=== PATIENT | female | born 1995 | race Caucasian/White ===

== ENCOUNTER 2017-03-27 02:24 | Emergency (ER) | payer SELFPAY ==
[~2017-03-27] VITALS: Ht 177.8 cm; Wt 78.9 kg
--- NOTE | 2017-03-27 03:22 | Diagnostic Imaging Report ---
ADDENDUM #1 HAND 3+ VIEWS LEFT HISTORY: Hand pain COMPARISON: None FINDINGS: Bones: Acute, nondisplaced fracture at the base of the second digit proximal diaphysis without intra-articular involvement Osseous alignment is within normal limits. Joints: The joint spaces are well-maintained. Soft tissues: There is a focal opacity at the palmar aspect of the left hand between the second and third metacarpal diaphysis suspicious for radiopaque foreign body IMPRESSION: 1. Acute, nondisplaced fracture of the base of the second digit without intra-articular involvement. 2. Palmar foreign body is suspected. Correlate for open wound. Signed by: Dr. Isauro Mendoza M.D. on 03/27/2017 3:41 AM ORIGINAL REPORT HAND 3+ VIEWS LEFT HISTORY: Hand pain COMPARISON: None FINDINGS: Bones: No displaced fracture. Osseous alignment is within normal limits. Joints: The joint spaces are well-maintained. Soft tissues: There is a focal opacity at the palmar aspect of the left hand between the second and third metacarpal diaphysis suspicious for radiopaque foreign body IMPRESSION: 1. No acute osseous abnormality. 2. Palmar foreign body is suspected. Correlate for open wound. Signed by: Dr. Isauro Mendoza M.D. on 03/27/2017 3:19 AM
[2017-03-27] MEDS ORDERED: ULTRAM 50MG50 MG PO (03:25)
== END 2017-03-27 05:00 | disposition home or self-care (01) ==
LOC: ER 02:24
DX: S62.611A Displaced fracture of proximal phalanx of left index finger, initial encounter for closed fracture (principal); X58.XXXA Exposure to other specified factors, initial encounter; Y93.9 Activity, unspecified
CPT/HCPCS: 99282

== ENCOUNTER 2018-01-25 04:57 | Emergency (ER) | payer SELFPAY ==
[~2018-01-25] VITALS: Ht 177.8 cm; Wt 78.9 kg
[~2018-01-25 04:57] MED LIST: ULTRAM 50MG50 MG PO
--- OUTSIDE RECORDS SUMMARY | 2018-01-25 04:59 | XMS REPORT ---
Author [facility] Address Unknown Phone Unavailable Care Team Providers Care Compressor Station Chief Engineer Name Role Phone Candice LAIRD Unavailable Unavailable Problems This patient has no known problems. Allergies, Adverse Reactions, Alerts This patient has no known allergies or adverse reactions. Medications This patient has no known medications. Results Test Description Test Time Test Comments Text Results Atomic Results Result Comments HAND 3+ VIEWS LEFT [place] [id number] Patient Name: VIVIAN NAVA MR #: [id number] : 1995 Age/Sex: 21/F Req #: [id number] Adm Physician: Ordered by: ROCCO LAIRD MD Report #: [id number] Location: ER Room/Bed: Procedure: [id number] DX/HAND 3+ VIEWS LEFT Exam Date: Exam Time: REPORT STATUS: Signed ADDENDUM #1 HAND 3+ VIEWS LEFT HISTORY: Hand pain COMPARISON: None FINDINGS: Bones: Acute, nondisplaced fracture at the base of the second digit proximal diaphysis without intra-articular involvement Osseous alignment is within normal limits. Joints: The joint spaces are well-maintained. Soft tissues: There is a focal opacity at the palmar aspect of the left hand between the second and third metacarpal diaphysis suspicious for radiopaque foreign body IMPRESSION: 1. Acute, nondisplaced fracture of the base of the second digit without intra-articular involvement. 2. Palmar foreign body is suspected. Correlate for open wound. Signed by: Dr. Isauro Mendoza M.D. on 03/27/2017 3:41 AM ORIGINAL REPORT HAND 3+ VIEWS LEFT HISTORY: Hand pain COMPARISON: None FINDINGS: Bones: No displaced fracture. Osseous alignment is within normal limits. Joints: The joint spaces are well-maintained. Soft tissues: There is a focal opacity at the palmar aspect of the left hand between the second and third metacarpal diaphysis suspicious for radiopaque foreign body IMPRESSION: 1. No acute osseous abnormality. 2. Palmar foreign body is suspected. Correlate for open wound. Signed by: Dr. Isauro Mendoza M.D. on 03/27/2017 3:19 AM Dictated By: ISAURO AGARWAL MD [id number] Transcribed By: KODY on 03/27/17 0319 COPY TO: ROCCO LAIRD MD
--- OUTSIDE RECORDS SUMMARY | 2018-01-25 05:00 | XMS REPORT ---
Author Author Admin, [place] Organization [facility] Address Unknown Phone Unavailable Allergies, Adverse Reactions, Alerts Allergy Name Reaction Description Start Date Severity Status Provider CATS Critical Active Campos Pantoja MD Conditions or Problems Problem Name Problem Code Onset Date Status Entry Date Provider Comment Standard Description Annotate Sore throat 462 Active Campos Pantoja MD Acute pharyngitis Medication List Medication Instructions Start Date Stop Date Generic Name NDC Status Provider Patient Instruction PENICILLIN V POTASSIUM 250 MG ORAL TABLET 1 by mouth 4 times a day for 10 days PENICILLIN V POTASSIUM 79156757821 Active Campos Pantoja MD Active Vital Signs Date Name Value Unit Range Description blood pressure, diastolic 85 mm[Hg] BP mac blood pressure, systolic 136 mm[Hg] BP sys height E&M 69.50 [in_us] Bdy height pulse rate E&M 99 /min Heart rate respiratory rate E&M 18 /min Resp rate temperature E&M 98.5 [degF] Body temperature weight E&M 199.13 [lb_av] Weight Measured Encounters Date Encounter Provider Code Facility 11:11:18 CDT New Patient Detailed - 40278 Campos Pantoja MD CPT-72874 [facility] Procedures Code Procedure Name Date Entry Date Standard Description CPT-99511 Rapid Strep - In House 10:41:57 CDT
[2018-01-25] MEDS ORDERED: FAMOTIDINE 20 MG/2 ML VIAL IV STA (05:17)
[2018-01-25] MEDS ORDERED: ONDANSETRON HCL INJ 2 MG/ML VIAL IV STA (05:17)
[2018-01-25] MEDS ORDERED: MORPHINE SULFATE 2 MG/ML SYR IV STA (05:17)
[2018-01-25] MEDS ORDERED: SODIUM CHLORIDE 0.9% 1000ML 1,000 ML IV SCH (05:30)
[2018-01-25] MEDS ORDERED: MORPHINE SULFATE INJ 4 MG/ML INJ ONE (05:31)
[2018-01-25 05:33] LABS: BASOPHILS % 0.2 % (0.0-1.0); EOSINOPHILS % 0.3 % (0.0-6.0); HEMATOCRIT 45.3 % (34.2-44.1); HEMOGLOBIN 15.4 g/dL (12.0-16.0); LYMPHOCYTES # (AUTO) 0.3 (1.0-3.2); MEAN CORPUSCULAR HEMOGLOBIN 31.5 pg (28-32); MEAN CORPUSCULAR VOLUME 92.6 fL (81-99); MONOCYTES # (AUTO) 0.5 (0.2-0.8); MONOCYTES % 3.7 % (4.4-11.3); NEUTROPHILS # (AUTO) 13.2 (2.1-6.9); NEUTROPHILS % 93.4 % (38.7-80.0); PLATELET COUNT 348 x10e3/uL (140-360); RED BLOOD COUNT 4.89 x10e6/uL (3.6-5.1); RED CELL DISTRIBUTION WIDTH 12.9 % (11.7-14.4)
[2018-01-25 05:53] LABS: ALANINE AMINOTRANSFERASE 13 IU/L (0-55); ALBUMIN 3.9 g/dL (3.5-5.0); ALBUMIN/GLOBULIN RATIO 1.3 (0.8-2.0); ALKALINE PHOSPHATASE 53 IU/L (40-150); AMYLASE 51 U/L (25-125); ANION GAP 14.8 mmol/L (8-16); BLOOD UREA NITROGEN 16 mg/dL (7-26); BUN/CREATININE RATIO 23 (6-25); CARBON DIOXIDE 23 mmol/L (22-29); CHLORIDE 100 mmol/L (98-107); CREATININE, SERUM 0.69 mg/dL (0.57-1.11); EST GLOMERULAR FILTRATION RATE > 60 ML/MIN (60-); GLUCOSE 113 mg/dL (74-118); LIPASE 45 U/L (8-78); POTASSIUM 3.8 mmol/L (3.5-5.1); SODIUM 134 mmol/L (136-145)
[2018-01-25 06:01] LABS: COLOR,URINE YELLOW (YELLOW)
[2018-01-25 06:02] LABS: CLARITY,URINE HAZY (CLEAR); LEUKOCYTE ESTERASE ,URINE NEGATIVE (NEGATIVE); NITRITE,URINE NEGATIVE (NEGATIVE); PROTEIN,URINE DIPSTICK NEGATIVE (NEGATIVE)
[2018-01-25 06:03] LABS: BACTERIA,URINE MODERATE /HPF; BILIRUBIN,URINE NEGATIVE (NEGATIVE); KETONES,URINE TRACE (NEGATIVE); RBC,URINE 0-5 /HPF (0-5); URINE UROBILINOGEN 0.2 mg/dL (0.2 - 1); WBC,URINE (MAN) 0-5 /HPF (0-5)
[2018-01-25 06:04] LABS: AMORPHOUS SEDIMENT,URINE FEW (FEW); EPITHELIAL CELLS,URINE MODERATE /LPF
[2018-01-25] MEDS ORDERED: SODIUM CHLORIDE 0.9% 50ML 50 ML ONE (06:13)
[2018-01-25] MEDS ORDERED: IOPAMIDOL 370 MG/ML 200 ML INFUS..BTL INJ ONE (06:13)
[2018-01-25 06:14] LABS: BAND NEUTROPHILS % (MANUAL) 8 %; EOSINOPHILS % (MANUAL) 1 % (0-7); LYMPHOCYTES % (MANUAL) 2 % (19-48); MONOCYTES % (MANUAL) 5 % (3.4-9.0); NEUTROPHILS % (MANUAL) 84 % (40-74)
[2018-01-25 06:15] LABS: ANISOCYTOSIS S; PLATELET ESTIMATE ADEQUATE; PLATELET MORPHOLOGY COMMENT NORMAL; POIKILOCYTOSIS SLIGHT; RBC MORPHOLOGY COMMENT NORMAL
--- NOTE | 2018-01-25 06:48 | Diagnostic Imaging Report ---
EXAM: CT ABDOMEN/PELVIS W DATE: 01/25/2018 5:51 AM INDICATION: Upper abdominal pain COMPARISON: None TECHNIQUE: The abdomen and pelvis were scanned using a multidetector helical scanner. Coronal and sagittal reformations were obtained. CT low dose techniques were utilized, as applicable. IV Contrast: 100 ml Isovue 300/370 FINDINGS: LOWER THORAX: No consolidations LIVER/BILIARY: No masses. No ductal dilatation. GALLBLADDER: Unremarkable SPLEEN: Unremarkable PANCREAS: Unremarkable ADRENALS: No nodules KIDNEYS: No suspicious renal masses. No hydronephrosis. GI TRACT: No wall thickening or evidence of obstruction. Normal appendix. VESSELS: Unremarkable PERITONEUM/RETROPERITONEUM: No free air or fluid LYMPH NODES: No lymphadenopathy REPRODUCTIVE ORGANS/BLADDER: Unremarkable SOFT TISSUES: Unremarkable BONES: No suspicious bone lesions. IMPRESSION: No acute abnormality. Signed by: Dr Nolvia Roberts MD on 01/25/2018 6:44 AM
== END 2018-01-25 07:35 | disposition home or self-care (01) ==
LOC: ER 04:57
DX: R10.11 Right upper quadrant pain (principal); R10.12 Left upper quadrant pain; R10.13 Epigastric pain; R11.2 Nausea with vomiting, unspecified
CPT/HCPCS: 36415; 74177; 80053; 81001; 81025; 82150; 83690; 85025; 99284; J2270; J2405; J7030; Q9967

== ENCOUNTER 2018-08-18 01:18 | Emergency (ER) | payer SELFPAY ==
[~2018-08-18] VITALS: Ht 177.8 cm; Wt 108.9 kg
[2018-08-18] MEDS ORDERED: IBUPROFEN 200 MG TAB PO STA (01:29)
[2018-08-18] MEDS ORDERED: ACETAMINOPHEN 325 MG TAB PO ONE (01:30)
[2018-08-18] MEDS ORDERED: ONDANSETRON HCL 4 MG ORAL DISINTEGRATING TAB PO ONE (01:30)
--- NOTE | 2018-08-18 02:05 | NUR ---
RADIOLOGY AT BEDSIDE FOR XRAY.
--- NOTE | 2018-08-18 02:22 | Diagnostic Imaging Report ---
Foot complete CPT code: 40315 Indication: Injury to top of foot ^trauma ^[id number] ^0200 Technique: A.P., oblique and lateral views of the left foot obtained. Comparison: None Findings: Calcaneus is intact and normal in morphology. The midfoot is intact. No evidence of displaced fracture or dislocation involving any of the digits. No radiopaque foreign bodies in the soft tissues. IMPRESSION: No acute traumatic pathology. Signed by: Dr. Misha Chappell MD on 08/18/2018 2:19 AM
[2018-08-18 02:34] VITALS: BP 125/82
== END 2018-08-18 02:51 | disposition home or self-care (01) ==
LOC: ER 01:18
DX: S93.621A Sprain of tarsometatarsal ligament of right foot, initial encounter (principal); G89.11 Acute pain due to trauma; W50.0XXA Accidental hit or strike by another person, initial encounter; Y92.89 Other specified places as the place of occurrence of the external cause
CPT/HCPCS: 73630; 99283; Q0162

== ENCOUNTER 2018-11-05 11:36 | Emergency (ER) | payer SELFPAY ==
[~2018-11-05] VITALS: Ht 177.8 cm; Wt 108.9 kg
[2018-11-05] MEDS ORDERED: ALBUTEROL/IPRATROPIUM 3 ML NEB NEB ONE (12:30)
--- NOTE | 2018-11-05 14:00 | Diagnostic Imaging Report ---
Chest, PA and lateral. History: Chest tightness, cough. Comparison: None available. Discussion: The cardiomediastinal silhouette and pulmonary vasculature are within normal limits. The lungs are clear without evidence of consolidation or effusion. There are no acute osseous abnormalities. IMPRESSION: No radiographic evidence acute cardiopulmonary abnormality. Signed by: Steve Regan MD on 11/05/2018 1:56 PM
== END 2018-11-05 14:35 | disposition home or self-care (01) ==
LOC: ER 11:36
DX: J45.30 Mild persistent asthma, uncomplicated (principal); R05 Cough
CPT/HCPCS: 71046; 93005; 94640; 99283

== ENCOUNTER 2019-06-09 11:48 | Emergency (ER) | payer SELFPAY ==
[~2019-06-09] VITALS: Ht 177.8 cm; Wt 108.9 kg
[2019-06-09] MEDS ORDERED: PANTOPRAZOLE SO40 MG (11:55)
[2019-06-09] MEDS ORDERED: ONDANSETRON HCL8 MG (11:55)
[2019-06-09] MEDS ORDERED: HYDROCHLOROTHIAZIDE 25 MG TAB PO SCH ×2 (12:00→12:15)
[2019-06-09] MEDS ORDERED: HYDROCHLOROTHIAZIDE 25 MG TAB ONE (12:03)
[2019-06-09] MEDS ORDERED: HYDROCHLOROTH12.5 MG PO (12:44)
== END 2019-06-09 12:52 | disposition home or self-care (01) ==
LOC: ER 11:51
DX: I10 Essential (primary) hypertension (principal)
CPT/HCPCS: 99282

== ENCOUNTER 2019-06-25 08:26 | Emergency (ER) | payer SELFPAY ==
[~2019-06-25] VITALS: Ht 175.3 cm; Wt 104.3 kg
[~2019-06-25 08:26] MED LIST changes: +HYDROCHLOROTH12.5 MG PO; +ONDANSETRON HCL8 MG; +PANTOPRAZOLE SO40 MG
[2019-06-25 08:58] VITALS: BP 137/87
== END 2019-06-25 09:02 | disposition home or self-care (01) ==
LOC: ER 08:26
DX: I10 Essential (primary) hypertension (principal); R51 Headache; J45.909 Unspecified asthma, uncomplicated; K21.9 Gastro-esophageal reflux disease without esophagitis
CPT/HCPCS: 99283

== ENCOUNTER 2019-07-03 17:07 | Emergency (ER) | payer SELFPAY ==
[~2019-07-03] VITALS: Ht 175.3 cm; Wt 104.3 kg
--- OUTSIDE RECORDS SUMMARY | 2019-07-03 17:10 | XMS REPORT ---
Author Author [facility] t Organization [facility] Address [address] [facility] [place] [address] Phone Unavailable Care Team Providers Care Pyridine Operator Name Role Phone DO ZAID LOBO PCP Amy GOSS Attphys Unavailable Marly BROCK Attphys Unavailable Janae MULLER Attphys Unavailable Candice LAIRD Attphycamille Unavailable Payers Payer Name Policy Type Policy Number Effective Date Expiration Date S ource Advance Directives Directive Decision Effective Date Termination Date Comments Sour ce Yes N/A [facility] Problems Condition Name Condition Details Condition Category Status Onset Date Resolution Date Last Treatment Date Treating Clinician Comments Source Problem Condition [facility] Allergies, Adverse Reactions, Alerts This patient has no known allergies or adverse reactions. Social History Social Habit Start Date Stop Date Quantity Comments Source Sex Assigned At 1995 00:00:00 1995 00:00:00 Female [facility] Medications Ordered Medication Name Filled Medication Name Start Date Stop Da te Current Medication? Ordering Clinician Indication Dosage Frequency Signature (SIG) Comments Components Source Hydrochlorothiazide Hydrochlorothiazide 2019-06-09 12:44:00 Yes 12.5 [facility] Tramadol Hcl (Ultram 50MG*) 50 Mg TAB Tramadol Hcl (Ultram 5 0MG*) 50 Mg TAB 2017-03-27 02:25:00 Yes 50 [facility] Ondansetron Hcl Ondansetron Hcl Yes [facility] Pantoprazole Sodium (Protonix) 40 Mg TABLET. Pantopr azole Sodium (Protonix) 40 Mg TABLET. Yes [facility] Vital Signs Vital Name Observation Time Observation Value Comments Source Weight 2019-06-25 08:28:00 230 [lb_av] [facility] BMI (Body Mass Index) 2019-06-25 08:28:00 34.0 kg/m2 [facility] Procedures Procedure Date / Time Performed Performing Clinician [facility] e X-ray of chest, two views 2018-11-05 00:00:00 CHAPIN BALDWIN [facility] Plan of Care Planned Activity Planned Date Details Comments Source Goal Patient referral [code = 6052501 ] [facility] Goal Patient referral [code = 6532335 ] [facility] Instructions Hypertension [facility] Encounters Start Date/Time End Date/Time Encounter Type Admission Type Attendi [facility] Facility Care Department Encounter ID Source 2019-06-25 08:26:00 2019-06-25 09:02:00 Departed Emergency Room [facility] [id number] [facility] 2019-06-09 11:51:00 2019-06-09 12:52:00 Departed Emergency Room [facility] [id number] [facility] 2018-11-05 11:36:00 2018-11-05 14:35:00 Departed Emergency Room 1 SHARON GOSS [facility] [id number] [facility] 2018-08-18 01:18:00 2018-08-18 02:51:00 Departed Emergency Room [address] [facility] [id number] [facility] 2018-01-25 04:57:00 2018-01-25 07:35:00 Departed Emergency Room [address] [facility] [id number] [facility] 2017-03-27 02:24:00 2017-03-27 05:00:00 Departed Emergency Room ER ROCCO LAIRD [facility] [id number] [facility] Results Test Description Test Time Test Comments Results Result Comments Source CHEST 2 VIEWS 2018-11-05 13:56:00 [facility] [address] [place] [address] Patient Name: ANDREA WHITESIDE MR #: [id number] : 1995 Age/Sex: 23/F Req #: [id number] Adm Physician: Ordered by: CHAPIN BALDWIN HEAD GREASE MAKER Report #: [id number] Location: ER Room/Bed: Procedure: [id number] DX/CHEST 2 VIEWS Exam Date: Exam Time: REPORT STATUS: Signed Chest, PA and lateral. History: Chest tightness, cough. Comparison: None available. Discussion: The cardiomediastinal silhouette and pulmonary vasculature are within normal limits. The lungs are clear without evidence of consolidation or effusion. There are no acute osseous abnormalities. IMPRESSION: No radiographic evidence acute cardiopulmonary abnormality. Signed by: Steve Mcdonald MD on 11/05/2018 1:56 PM Dictated By: STEVE MCDONALD MD 1356 Transcribed By: KODY on 11/05/18 1356 COPY TO: CHAPIN BALDWIN NP FOOT LEFT COMPLETE 2018-08-18 02:18:00 [place] [address] Patient Name: ANDREA WHITESIDE MR #: [id number] : 1995 Age/Sex: 22/F Req #: [id number] Adm Physician: Ordered by: CARMEN BROCK MD Report #: [id number] Location: ER Room/Bed: Procedure: [id number] DX/FOOT LEFT COMPLETE Exam Date: 08/18/18 Exam Time: 0200 REPORT STATUS: Signed Foot complete CPT code: 67346 Indication: Injury to top of foot trauma [id number] 0200 Technique: A.P., oblique and lateral views of the left foot obtained. Comparison: None Findings: Calcaneus is intact and normal in morphology. The midfoot is intact. No evidence of displaced fracture or dislocation involving any of the digits. No radiopaque foreign bodies in the soft tissues. IMPRESSION: No acute traumatic pathology. Signed by: Dr. Brennan Ballesteros MD on 08/18/2018 2:19 AM Dictated By: BRENNAN BALLESTEROS MD 8 Transcribed By: KODY on 08/18/18218 COPY TO: CARMEN BROCK MD CT ABDOMEN/PELVIS W 2018-01-25 06:37:00 [place] [address] Patient Name: ANDREA WHITESIDE MR #: [id number] : 1995 Age/Sex: 22/F Req #: [id number] Adm Physician: Ordered by: ELIJAH MULLER MD Report #: [id number] Location: ER Room/Bed: Procedure: [id number] CT/CT ABDOMEN/PELVIS W Exam Date: 01/25/18 Exam Time: 624 REPORT STATUS: Signed EXAM: CT ABDOMEN/PELVIS W DATE: 01/25/2018 5:51 AM INDICATION: Upper abdominal pain COMPARISON: None TECHNIQUE: The abdomen and pelvis were scanned using a multidetector helical scanner. Coronal and sagittal reformations were obtained. CT low dose techniques were utilized, as applicable. IV Contrast: 100 ml Isovue 300/370 FINDINGS: LOWER THORAX: No consolidations LIVER/BILIARY: No masses. No ductal dilatation. GALLBLADDER: Unremarkable SPLEEN: Unremarkable PANCREAS: Unremarkable ADRENALS: No nodules KIDNEYS: No suspicious renal masses. No hydronephrosis. GI TRACT: No wall thickening or evidence of obstruction. Normal appendix. VESSELS: Unremarkable PERITONEUM/RETROPERITONEUM: No free air or fluid LYMPH NODES: No lymphadenopathy REPRODUCTIVE ORGANS/BLADDER: Unremarkable SOFT TISSUES: Unremarkable BONES: No suspicious bone lesions. IMPRESSION: No acute abnormality. Signed by: Dr Jules Plasencia MD on 01/25/2018 6:44 AM Dictated By: JULES PLASENCIA MD 3 Transcribed By: KODY on 01/25/18643 COPY TO: ELIJAH MULLER MD HAND 3+ VIEWS LEFT [place] [address] Patient Name: ANDREA WHITESIDE MR #: [id number] : 1995 Age/Sex: 21/F Req #: [id number] Adm Physician: Ordered by: ROCCO LAIRD MD Report #: [id number] Location: ER Room/Bed: Procedure: [id number] DX/HAND 3+ VIEWS LEFT Exam Date: Exam [...]
[2019-07-03] MEDS ORDERED: SODIUM CHLORIDE 0.9% 1000ML 1,000 ML IV STA (17:27)
[2019-07-03] MEDS ORDERED: ONDANSETRON HCL INJ 2MG/ML 2ML 2 MG/ML VIAL IV NR (17:30)
[2019-07-03] MEDS ORDERED: PANTOPRAZOLE 40 MG 10ML VIAL IV NR (17:30)
--- NOTE | 2019-07-03 17:32 | NUR ---
PATIENT TO ROOM 9
--- NOTE | 2019-07-03 18:04 | Emergency Department Note ---
History of Present Illnes History of Present Illness Chief Complaint: Abdominal Complaints History of Present Illness This is a 23 year old female .c/o rectal bleeding bright red x 1 episode and left side abd pain on set 3 pm HERE FOR BURNING TO LEFT FLANK/ABDOMEN, ALSO REPORTS BLOOD IN TOILET AFTER ATTEMPTING TO USE THE RESTROOM. Historian: Patient Arrival Mode: Car Onset (how long ago): day(s) (today) Radiation: non-radiation Severity: moderate Onset quality: sudden Duration (how long): day(s) (3 pm today) Context: recent illness, recent surgery, recent immobilization, recent travel, trauma/injury, new medications, hx of DVT/PE, non-compliance w/ medications, other Relieving factors: none Exacerbating factors: none Treatments prior to arrival: none (LISANDRA PEARL NP) Past Medical/Family History Physician Review I have reviewed the patient's past medical and family history. Any updates have been documented here. (LISANDRA PEARL NP) Past Medical History Recent Fever: No Clinical Suspicion of Infectio: No New/Unexplained Change in Ment: No Past Medical History: Hypertension, Asthma, GERD Past Surgical History: None (LISANDRA PEARL NP) Social History Smoking Cessation: Never Smoker Alcohol Use: None Any Illegal Drug Use: No TB Exposure/Symptoms: No (LISANDRA PEARL NP) Family History Family history of heart diseas: No (LISANDRA PEARL NP) Other Last Tetanus: UTD Any Pre-Existing Lines (PICC,: No (LISANDRA PEARL NP) Review of Systems Review of Systems Constitutional: no symptoms EENTM: no symptoms Cardiovascular: no symptoms Respiratory: no symptoms Gastrointestinal: abdominal pain (left side), other (c/o rectal bleeding ) Genitourinary: no symptoms Musculoskeletal: no symptoms Neurological: no symptoms Psychological: no symptoms Endocrine: no symptoms Hematological/Lymphatic: no symptoms Review of other systems All other systems reviewed and negative. (LISANDRA PEARL NP) Physical Exam Related Data Allergies: Coded Allergies: No Known Allergies (Unverified , 11/05/18) Triage Vital Signs Vital Signs Date Time Temp Pulse Resp B/P (MAP) Pulse Ox O2 Delivery O2 Flow Rate FiO2 07/03/19 17:12 97.5 108 18 134/87 99 Vital signs reviewed: Yes (LISANDRA PEARL NP) Physical Exam CONSTITUTIONAL Constitutional: well-developed, well-nourished HENT HENT: normocephalic, atraumatic, oropharynx clear/moist, nose normal HENT L/R: left ext ear normal, right ext ear normal EYES Eyes: conjunctivae normal, EOM normal NECK Neck: ROM normal PULMONARY Pulmonary: effort normal, breath sounds normal, respiratory distress, rales, rhonchi, chest tenderness, other CARDIOVASCULAR Cardiovascular: regular rhythm, heart sounds normal, capillary refill normal, normal rate GASTROINTESTINAL Abdominal: soft, tender (left side abd ttp on exam noted mod); guarding, rebound GENITOURINARY Genitourinary: guaiac result (pos / rectal exam pos bright red blood on exam no hemorrhoids noted pt lali well / shaperon RN Stephanie) SKIN Skin: warm, dry MUSCULOSKELETAL Musculoskeletal: ROM normal NEUROLOGICAL Neurological: alert, oriented x 3, no gross motor or sensory deficits PSYCHOLOGICAL Psychological: mood/affect normal, judgement normal (LISANDRA PEARL NP) Results Laboratory Laboratory Laboratory Tests Test 07/03/19 18:00 07/03/19 17:30 White Blood Count 9.42 x10e3/uL (4.8-10.8) Red Blood Count 4.78 x10e6/uL (3.6-5.1) Hemoglobin 14.5 g/dL (12.0-16.0) Hematocrit 43.6 % (34.2-44.1) Mean Corpuscular Volume 91.2 fL (81-99) Mean Corpuscular Hemoglobin 30.3 pg (28-32) Mean Corpuscular Hemoglobin Concent 33.3 g/dL (31-35) Red Cell Distribution Width 12.6 % (11.7-14.4) Platelet Count 484 x10e3/uL (140-360) Neutrophils (%) (Auto) 65.0 % (38.7-80.0) Lymphocytes (%) (Auto) 24.1 % (18.0-39.1) Monocytes (%) (Auto) 8.8 % (4.4-11.3) Eosinophils (%) (Auto) 1.2 % (0.0-6.0) Basophils (%) (Auto) 0.6 % (0.0-1.0) Neutrophils # (Auto) 6.1 (2.1-6.9) Lymphocytes # (Auto) 2.3 (1.0-3.2) Monocytes # (Auto) 0.8 (0.2-0.8) Eosinophils # (Auto) 0.1 (0.0-0.4) Basophils # (Auto) 0.1 (0.0-0.1) Absolute Immature Granulocyte (auto 0.03 x10e3/uL (0-0.1) Stool Occult Blood Positive (NEGATIVE) Sodium Level 139 mmol/L (136-145) Potassium Level 3.7 mmol/L (3.5-5.1) Chloride Level 101 mmol/L (98-107) Carbon Dioxide Level 25 mmol/L (22-29) Anion Gap 16.7 mmol/L (8-16) Blood Urea Nitrogen 11 mg/dL (7-26) Creatinine 0.78 mg/dL (0.57-1.11) Estimat Glomerular Filtration Rate > 60 ML/MIN (60-) BUN/Creatinine Ratio 14 (6-25) Glucose Level 105 mg/dL (74-118) Calcium Level 9.8 mg/dL (8.4-10.2) Total Bilirubin 0.4 mg/dL (0.2-1.2) Aspartate Amino Transf (AST/SGOT) 13 IU/L (5-34) Alanine Aminotransferase (ALT/SGPT) 9 IU/L (0-55) Alkaline Phosphatase 66 IU/L (40-150) Total Protein 7.7 g/dL (6.5-8.1) Albumin 4.3 g/dL (3.5-5.0) Globulin 3.4 g/dL (2.3-3.5) Albumin/Globulin Ratio 1.3 (0.8-2.0) Human Chorionic Gonadotropin, Qual Negative (NEGATIVE) Urine Color Yellow (YELLOW) Urine Clarity Clear (CLEAR) Urine pH 7 (5 - 7) Urine Specific [place] 1.015 (1.010-1.025) Urine Protein Negative (NEGATIVE) Urine Glucose (UA) Negative (NEGATIVE) Urine Ketones Negative (NEGATIVE) Urine Blood Trace (NEGATIVE) Urine Nitrite Negative (NEGATIVE) Urine Bilirubin Negative (NEGATIVE) Urine Urobilinogen 0.2 mg/dL (0.2 - 1) Urine Leukocyte Esterase Negative (NEGATIVE) Urine RBC 0-5 /HPF (0-5) Urine WBC 0-5 /HPF (0-5) Urine Epithelial Cells Moderate /LPF (NONE) Urine Bacteria Few /HPF (NONE) Laboratory Tests Test 07/03/19 18:00 07/03/19 17:30 White Blood Count 9.42 x10e3/uL (4.8-10.8) Red Blood Count 4.78 x10e6/uL (3.6-5.1) Hemoglobin 14.5 g/dL (12.0-16.0) Hematocrit 43.6 % (34.2-44.1) Mean Corpuscular Volume 91.2 fL (81-99) Mean Corpuscular Hemoglobin 30.3 pg (28-32) Mean Corpuscular Hemoglobin Concent 33.3 g/dL (31-35) Red Cell Distribution Width 12.6 % (11.7-14.4) Platelet Count 484 x10e3/uL (140-360) Neutrophils (%) (Auto) 65.0 % (38.7-80.0) Lymphocytes (%) (Auto) 24.1 % (18.0-39.1) Monocytes (%) (Auto) 8.8 % (4.4-11.3) Eosinophils (%) (Auto) 1.2 % (0.0-6.0) Basophils (%) (Auto) 0.6 % (0.0-1.0) Neutrophils # (Auto) 6.1 (2.1-6.9) Lymphocytes # (Auto) 2.3 (1.0-3.2) Monocytes # (Auto) 0.8 (0.2-0.8) Eosinophils # (Auto) 0.1 (0.0-0.4) Basophils # (Auto) 0.1 (0.0-0.1) Absolute Immature Granulocyte (auto 0.03 x10e3/uL (0-0.1) Stool Occult Blood Positive (NEGATIVE) Sodium Level 139 mmol/L (136-145) Potassium Level 3.7 mmol/L (3.5-5.1) Chloride Level 101 mmol/L (98-107) Carbon Dioxide Level 25 mmol/L (22-29) Anion Gap 16.7 mmol/L (8-16) Blood Urea Nitrogen 11 mg/dL (7-26) Creatinine 0.78 mg/dL (0.57-1.11) Estimat Glomerular Filtration Rate > 60 ML/MIN (60-) BUN/Creatinine Ratio 14 (6-25) Glucose Level 105 mg/dL (74-118) Calcium Level 9.8 mg/dL (8.4-10.2) Total Bilirubin 0.4 mg/dL (0.2-1.2) Aspartate Amino Transf (AST/SGOT) 13 IU/L (5-34) Alanine Aminotransferase (ALT/SGPT) 9 IU/L (0-55) Alkaline Phosphatase 66 IU/L (40-150) Total Protein 7.7 g/dL (6.5-8.1) Albumin 4.3 g/dL (3.5-5.0) Globulin 3.4 g/dL (2.3-3.5) Albumin/Globulin Ratio 1.3 (0.8-2.0) Human Chorionic Gonadotropin, Qual Negative (NEGATIVE) Urine Color Yellow (YELLOW) Urine Clarity Clear (CLEAR) Urine pH 7 (5 - 7) Urine Specific [place] 1.015 (1.010-1.025) Urine Protein Negative (NEGATIVE) Urine Glucose (UA) Negative (NEGATIVE) Urine Ketones Negative (NEGATIVE) Urine Blood Trace (NEGATIVE) Urine Nitrite Negative (NEGATIVE) Urine Bilirubin Negative (NEGATIVE) Urine Urobilinogen 0.2 mg/dL (0.2 - 1) Urine Leukocyte Esterase Negative (NEGATIVE) Urine RBC 0-5 /HPF (0-5) Urine WBC 0-5 /HPF (0-5) Urine Epithelial Cells Moderate /LPF (NONE) Urine Bacteria Few /HPF (NONE) Lab results reviewed: Yes (LISANDRA PEARL NP) Imaging Impressions Procedure: [id number] CT/CT ABDOMEN/PELVIS W Exam Date: 07/03/19 Exam Time: 1899 REPORT STATUS: Signed EXAM: CT Abdomen and Pelvis WITH contrast INDICATION: ^left side abd pain ^[id number] ^1899 COMPARISON: 01/25/2018 TECHNIQUE: Abdomen and pelvis were scanned utilizing a multidetector helical scanner from the lung base to the pubic symphysis after administration of IV contrast. Coronal and sagittal reformations were obtained. IV CONTRAST: 100 mL of Isovue 370 ORAL CONTRAST: Water COMPLICATIONS: None RADIATION DOSE: Total DLP: ... mGy*cm Estimated effective dose: (DLP x 0.015 x size factor) mSv CTDIvol has been reviewed. It is below the limits set by the Radiation Protocol Committee (RPC). Dose modulation, iterative reconstruction, and/or weight based adjustment of the mA/kV was utilized to reduce the radiation dose to as low as reasonably achievable. Routine protocol was performed. Scan was performed when during portal venous phase. FINDINGS: LINES and TUBES: None. LOWER THORAX: Unremarkable HEPATOBILIARY: No focal hepatic lesions. No biliary ductal dilation. GALLBLADDER: Contracted. No definite wall thickening. SPLEEN: No splenomegaly. PANCREAS: No focal masses or ductal dilatation. ADRENALS: No adrenal nodules KIDNEYS/URETERS: Kidneys enhance symmetrically. No hydronephrosis. No cystic or solid mass lesions. No stones. GI TRACT: No abnormal distention, wall thickening, or evidence of bowel obstruction. Appendix is normal. PELVIC ORGANS/BLADDER: Unremarkable. LYMPH NODES: No lymphadenopathy. VESSELS: Unremarkable. PERITONEUM / RETROPERITONEUM: No free air or fluid. BONES: Unremarkable. SOFT TISSUES: Unremarkable. IMPRESSION: No acute abdominal or pelvic abnormality. Signed by: Elijah Carreno MD on 07/03/2019 8:05 PM Dictated By: ELIJAH CARRENO MD 04 Transcribed By: KODY on 07/03/192004 (LISANDRA PEARL NP) Critical Care Time Subsequent provider I assumed direction of critical care for this patient from another provider of my specialty. (LISANDRA PEARL NP) Assessment & Plan Assessment & Plan Problems: (1) Rectal bleeding (2) Abdominal pain Assessment & Plan 23y f presented to ed c/o sudden left side abd pain on set 3pm and x 1 episode of rectal bleeding (bright red blood) - Dr Lowe in eval pt status - lab ct ordered - pt medicated w/ ns zofran protonix Discussed pt presentation and plan of care w/ Dr Alpesh Laird in eval pt status discusse dlab ct results plan of care care and f/u instructions 1. follow up with GI doctor in 1-2 days without fail 2. bland diet 3. return to ed as needed 4. rx zofran bentyl (LISANDRA PEARL NP) Last Vital Signs Date Time Temp Pulse Resp B/P (MAP) Pulse Ox O2 Delivery O2 Flow Rate FiO2 07/03/19 17:12 97.5 108 18 134/87 99 (LISANDRA PEARL NP) Home Meds Active Scripts Hydrochlorothiazide (HYDROCHLOROTHIAZIDE) 12.5 Mg Tablet, 12.5 MG PO DAILY, #30 Prov:CRISTO SHEPARD, DO 06/09/19 Tramadol Hcl* (ULTRAM 50MG*) 50 Mg Tab, 50 MG PO Q6H PRN for PAIN, #20 TAB Prov:ROCCO LAIRD MD 03/27/17 Reported Medications Ondansetron Hcl (ONDANSETRON HCL) 8 Mg Tablet 06/09/19 Pantoprazole Sodium* (PROTONIX) 40 Mg Tablet. 06/09/19 Medications in the ED Sodium Chloride 1,000 ml @ 0 mls/hr Q0M STAT IV ; Start 07/03/19 at 17:27; Stop 07/03/19 at 17:28 Pantoprazole Sodium 40 mg ONCE IV ; Start 07/03/19 at 17:30; Stop 07/03/19 at 18:59 Ondansetron HCl 4 mg ONCE IV ; Start 07/03/19 at 17:30; Stop 07/03/19 at 18:59 (LISANDRA PEARL NP) Attestation Provider Attestation The patient's history, exam findings, diagnostics, and a summary of any interventions or procedures was reviewed in detail with our MARLY. I confirm the diagnosis as documented by the MARLY and I agree with the care plan articulated in the disposition section with regards to our discussion of the patients case. (ROCCO LAIRD MD) LISANDRA PEARL NP July 03, 2019 18:04 ROCCO LAIRD MD July 03, 2019 20:15
[2019-07-03 18:06] LABS: BASOPHILS # (AUTO) 0.1 (0.0-0.1); BASOPHILS % 0.6 % (0.0-1.0); EOSINOPHILS # (AUTO) 0.1 (0.0-0.4); EOSINOPHILS % 1.2 % (0.0-6.0); HEMATOCRIT 43.6 % (34.2-44.1); HEMOGLOBIN 14.5 g/dL (12.0-16.0); LYMPHOCYTES # (AUTO) 2.3 (1.0-3.2); LYMPHOCYTES % 24.1 % (18.0-39.1); MEAN CORPUSCULAR HEMOGLOBIN 30.3 pg (28-32); MEAN CORPUSCULAR HGB CONC 33.3 g/dL (31-35); MEAN CORPUSCULAR VOLUME 91.2 fL (81-99); MONOCYTES # (AUTO) 0.8 (0.2-0.8); MONOCYTES % 8.8 % (4.4-11.3); NEUTROPHILS # (AUTO) 6.1 (2.1-6.9); PLATELET COUNT 484 x10e3/uL (140-360); RED BLOOD COUNT 4.78 x10e6/uL (3.6-5.1); RED CELL DISTRIBUTION WIDTH 12.6 % (11.7-14.4)
[2019-07-03 18:16] LABS: COLOR,URINE YELLOW (YELLOW)
[2019-07-03 18:17] LABS: BILIRUBIN,URINE NEGATIVE (NEGATIVE); CLARITY,URINE CLEAR (CLEAR); KETONES,URINE NEGATIVE (NEGATIVE); LEUKOCYTE ESTERASE ,URINE NEGATIVE (NEGATIVE); NITRITE,URINE NEGATIVE (NEGATIVE); PROTEIN,URINE DIPSTICK NEGATIVE (NEGATIVE); URINE UROBILINOGEN 0.2 mg/dL (0.2 - 1)
[2019-07-03 18:29] LABS: ALANINE AMINOTRANSFERASE 9 IU/L (0-55); ALBUMIN 4.3 g/dL (3.5-5.0); ALBUMIN/GLOBULIN RATIO 1.3 (0.8-2.0); ALKALINE PHOSPHATASE 66 IU/L (40-150); ANION GAP 16.7 mmol/L (8-16); BLOOD UREA NITROGEN 11 mg/dL (7-26); BUN/CREATININE RATIO 14 (6-25); CALCIUM 9.8 mg/dL (8.4-10.2); CARBON DIOXIDE 25 mmol/L (22-29); CHLORIDE 101 mmol/L (98-107); CREATININE, SERUM 0.78 mg/dL (0.57-1.11); EST GLOMERULAR FILTRATION RATE > 60 ML/MIN (60-); GLUCOSE 105 mg/dL (74-118); POTASSIUM 3.7 mmol/L (3.5-5.1); SODIUM 139 mmol/L (136-145)
[2019-07-03 18:35] LABS: BACTERIA,URINE FEW /HPF; EPITHELIAL CELLS,URINE MODERATE /LPF; RBC,URINE 0-5 /HPF (0-5); WBC,URINE (MAN) 0-5 /HPF (0-5)
[2019-07-03] MEDS ORDERED: IOPAMIDOL 370 MG/ML 200 ML INFUS..BTL INJ ONE (19:09)
[2019-07-03] MEDS ORDERED: SODIUM CHLORIDE 0.9% 50ML 50 ML ONE (19:09)
--- NOTE | 2019-07-03 20:08 | Diagnostic Imaging Report ---
EXAM: CT Abdomen and Pelvis WITH contrast INDICATION: ^left side abd pain ^[id number] ^190 COMPARISON: 01/25/2018 TECHNIQUE: Abdomen and pelvis were scanned utilizing a multidetector helical scanner from the lung base to the pubic symphysis after administration of IV contrast. Coronal and sagittal reformations were obtained. IV CONTRAST: 100 mL of Isovue 370 ORAL CONTRAST: Water COMPLICATIONS: None RADIATION DOSE: Total DLP: ... mGy*cm Estimated effective dose: (DLP x 0.015 x size factor) mSv CTDIvol has been reviewed. It is below the limits set by the Radiation Protocol Committee (RPC). Dose modulation, iterative reconstruction, and/or weight based adjustment of the mA/kV was utilized to reduce the radiation dose to as low as reasonably achievable. Routine protocol was performed. Scan was performed when during portal venous phase. FINDINGS: LINES and TUBES: None. LOWER THORAX: Unremarkable HEPATOBILIARY: No focal hepatic lesions. No biliary ductal dilation. GALLBLADDER: Contracted. No definite wall thickening. SPLEEN: No splenomegaly. PANCREAS: No focal masses or ductal dilatation. ADRENALS: No adrenal nodules KIDNEYS/URETERS: Kidneys enhance symmetrically. No hydronephrosis. No cystic or solid mass lesions. No stones. GI TRACT: No abnormal distention, wall thickening, or evidence of bowel obstruction. Appendix is normal. PELVIC ORGANS/BLADDER: Unremarkable. LYMPH NODES: No lymphadenopathy. VESSELS: Unremarkable. PERITONEUM / RETROPERITONEUM: No free air or fluid. BONES: Unremarkable. SOFT TISSUES: Unremarkable. IMPRESSION: No acute abdominal or pelvic abnormality. Signed by: Ishan Kathleen MD on 07/03/2019 8:05 PM
[2019-07-03 20:13] VITALS: BP 128/86
== END 2019-07-03 20:36 | disposition home or self-care (01) ==
LOC: ER 17:07
DX: K62.5 Hemorrhage of anus and rectum (principal); R10.9 Unspecified abdominal pain; I10 Essential (primary) hypertension; K21.9 Gastro-esophageal reflux disease without esophagitis; J45.909 Unspecified asthma, uncomplicated
CPT/HCPCS: 36415; 74177; 80053; 81001; 82270; 84702; 85025; 87086; 99284; J2405; J7030; Q9967

== ENCOUNTER 2024-04-27 08:49 | Emergency (ER) | payer SELFPAY ==
[~2024-04-27] VITALS: Ht 175.3 cm; Wt 120.2 kg
[2024-04-27 09:00] VITALS: TEMP 97.8
[2024-04-27] MEDS: ONDANSETRON HCL INJ 2MG/ML 2ML 2 MG/ML VIAL IV STA (10:05)
[2024-04-27] MEDS: KETOROLAC TROMETHAMINE 30 MG/ML VIAL IV STA (10:06)
[2024-04-27 10:16] LABS: ALANINE AMINOTRANSFERASE 13 IU/L (0-55); ALBUMIN 3.6 g/dL (3.5-5.0); ALBUMIN/GLOBULIN RATIO 1.1 (0.8-2.0); ALKALINE PHOSPHATASE 49 IU/L (40-150); BILIRUBIN,TOTAL 0.4 mg/dL (0.2-1.2); BLOOD UREA NITROGEN 7 mg/dL (7-26); BUN/CREATININE RATIO 9 (6-25); CALCIUM 9.1 mg/dL (8.4-10.2); CARBON DIOXIDE 27 mmol/L (22-29); CHLORIDE 104 mmol/L (98-107); CREATININE, SERUM 0.75 mg/dL (0.57-1.11); EST GLOMERULAR FILTRATION RATE 112 ML/MIN (>=60); GLUCOSE 100 mg/dL (74-118); LIPASE 38 U/L (8-78); SODIUM 141 mmol/L (136-145); TOTAL PROTEIN 6.8 g/dL (6.5-8.1)
[2024-04-27 10:21] LABS: BASOPHILS # (AUTO) 0.1 (0.0-0.1); BASOPHILS % 0.9 % (0.0-1.0); EOSINOPHILS # (AUTO) 0.4 (0.0-0.4); EOSINOPHILS % 5.5 % (0.0-6.0); HEMATOCRIT 40.9 % (34.2-44.1); HEMOGLOBIN 13.9 g/dL (12.0-16.0); LYMPHOCYTES # (AUTO) 1.7 (1.0-3.2); LYMPHOCYTES % 24.5 % (18.0-39.1); MEAN CORPUSCULAR HEMOGLOBIN 31.2 pg (28-32); MEAN CORPUSCULAR VOLUME 91.7 fL (81-99); MONOCYTES # (AUTO) 0.9 (0.2-0.8); MONOCYTES % 12.6 % (4.4-11.3); NEUTROPHILS # (AUTO) 3.9 (2.1-6.9); NEUTROPHILS % 55.9 % (38.7-80.0); PLATELET COUNT 423 x10e3/uL (140-360); RED BLOOD COUNT 4.46 x10e6/uL (3.6-5.1); RED CELL DISTRIBUTION WIDTH 13.3 % (11.7-14.4); WHITE BLOOD COUNT 6.93 x10e3/uL (4.8-10.8)
[2024-04-27 10:24] LABS: COLOR,URINE YELLOW (YELLOW)
[2024-04-27 10:25] LABS: AMORPHOUS SEDIMENT,URINE MANY; BACTERIA,URINE MANY /HPF; BILIRUBIN,URINE NEGATIVE (NEGATIVE); CLARITY,URINE CLOUDY (CLEAR); EPITHELIAL CELLS,URINE FEW /LPF; GLUCOSE, URINE NEGATIVE (NEGATIVE); KETONES,URINE NEGATIVE (NEGATIVE); LEUKOCYTE ESTERASE ,URINE NEGATIVE (NEGATIVE); NITRITE,URINE NEGATIVE (NEGATIVE); PH,URINE 8.5 (5 - 7); PROTEIN,URINE DIPSTICK NEGATIVE (NEGATIVE); RBC,URINE 0-5 /HPF (0-5); URINE UROBILINOGEN 0.2 mg/dL (0.2 - 1); WBC,URINE (MAN) 0-5 /HPF (0-5)
[2024-04-27] MEDS ORDERED: IOPAMIDOL 370 MG/ML 100 ML INFUS..BTL INJ ONE (12:03)
[2024-04-27 15:05] VITALS: PULSE 84; RESP 16
[2024-04-27] MEDS ORDERED: ONDANSETRON ODT4 MG PO (15:31)
[2024-04-27] MEDS ORDERED: DICYCLOMINE HCL20 MG PO (15:31)
[2024-04-27 16:40] VITALS: BP 117/68; PULSE 74; RESP 18; TEMP 98.3; O2SAT 98
== END 2024-04-27 16:44 | disposition home or self-care (01) ==
LOC: ER 08:55
DX: R10.11 Right upper quadrant pain (principal); K82.9 Disease of gallbladder, unspecified; R11.0 Nausea; I10 Essential (primary) hypertension; K42.9 Umbilical hernia without obstruction or gangrene; F17.210 Nicotine dependence, cigarettes, uncomplicated
CPT/HCPCS: 36415; 74177; 80053; 81001; 83690; 84484; 84702; 85025; 85379; 99284; J1885; J2405; Q9967